=== PATIENT | male | born 1995 | race Two or more races ===

== ENCOUNTER 2019-08-02 10:45 | Emergency (ER) | payer SELFPAY ==
[~2019-08-02] VITALS: Ht 185.4 cm; Wt 113.4 kg
--- NOTE | 2019-08-02 10:50 | NUR ---
bib self 24 year old male c/o "albuterol puff not helping, still wheezing" x 2 weeks. alert and oriented x4, breathing even, states he feels sob, saturating well 97% to room air. skin intact and warm to touch. waiting to be seen by
[2019-08-02] MEDS ORDERED: ALBUTEROL FS 2.5 MG/3 ML VIAL.NEB ONE (10:55)
[2019-08-02] MEDS ORDERED: IPRATROPIUM NEB FS 0.5 MG/2.5 ML AMPUL.NEB ONE (10:55)
[2019-08-02] MEDS ORDERED: predniSONE 20 MG TABLET PO ONE (11:00)
[2019-08-02] MEDS ORDERED: IPRATROPIUM NEB FS 0.5 MG/2.5 ML AMPUL.NEB NEB ONE (11:00)
[2019-08-02] MEDS ORDERED: ALBUTEROL FS 2.5 MG/3 ML VIAL.NEB NEB ONE (11:00)
[2019-08-02] MEDS ORDERED: predniSONE 10 MG TABLET ONE (11:03)
[2019-08-02 11:44] VITALS: BP 133/80
--- NOTE | 2019-08-02 11:45 | NUR ---
Patient discharged to home in stable condition. Written and verbal after care instructions given. Patient verbalizes understanding of instruction.
== END 2019-08-02 12:35 | disposition home or self-care (01) ==
LOC: ER 10:50
DX: J45.909 Unspecified asthma, uncomplicated (principal)
CPT/HCPCS: 94644; 99285; J7512

== ENCOUNTER 2019-10-24 12:17 | Emergency (ER) | payer SELFPAY ==
[~2019-10-24] VITALS: Ht 185.4 cm; Wt 117.9 kg
[2019-10-24 12:38] VITALS: BP 133/95
== END 2019-10-24 13:02 | disposition home or self-care (01) ==
LOC: ER 12:19
DX: J45.909 Unspecified asthma, uncomplicated (principal)

== ENCOUNTER 2019-11-30 08:27 | Emergency (ER) | payer SELFPAY ==
[~2019-11-30] VITALS: Ht 182.9 cm; Wt 118.4 kg
[2019-11-30 08:36] VITALS: BP 142/84
== END 2019-11-30 08:54 | disposition home or self-care (01) ==
LOC: ER 08:31
DX: J45.909 Unspecified asthma, uncomplicated (principal)

== ENCOUNTER 2020-01-20 15:20 | Emergency (ER) | payer MEDICAID ==
[~2020-01-20] VITALS: Ht 182.9 cm; Wt 127.0 kg
[2020-01-20 15:28] VITALS: BP 132/85
--- NOTE | 2020-01-20 15:50 | NUR ---
Patient discharged to home in stable condition. Written and verbal after care instructions given. Patient verbalizes understanding of instruction.
== END 2020-01-20 15:50 | disposition home or self-care (01) ==
LOC: ER 15:26
DX: J45.909 Unspecified asthma, uncomplicated (principal)

== ENCOUNTER 2020-03-22 14:43 | Emergency (ER) | payer MEDICAID, OTHER ==
[~2020-03-22] VITALS: Ht 185.4 cm; Wt 117.9 kg
[2020-03-22] MEDS ORDERED: ALBU8.5H8 INH (14:56)
[2020-03-22 15:09] VITALS: BP 138/77
--- NOTE | 2020-03-22 15:09 | NUR ---
Patient discharged to home in stable condition. Written and verbal after care instructions given. Patient verbalizes understanding of instruction.
== END 2020-03-22 15:09 | disposition home or self-care (01) ==
LOC: ER 14:47
DX: J45.909 Unspecified asthma, uncomplicated (principal); Z76.0 Encounter for issue of repeat prescription; Z79.899 Other long term (current) drug therapy

== ENCOUNTER 2021-04-17 16:37 | Emergency (ER) | payer OTHER ==
[~2021-04-17] VITALS: Ht 185.4 cm; Wt 122.5 kg
[~2021-04-17 16:37] MED LIST: ALBU8.5H8 INH
[2021-04-17 16:53] VITALS: BP 130/90
--- NOTE | 2021-04-17 17:10 | NUR ---
Patient discharged to home in stable condition. Written and verbal after care instructions given. Patient verbalizes understanding of instruction.
== END 2021-04-17 17:11 | disposition home or self-care (01) ==
LOC: ER 16:48
DX: S61.214A Laceration without foreign body of right ring finger without damage to nail, initial encounter (principal); J45.909 Unspecified asthma, uncomplicated; Z79.899 Other long term (current) drug therapy; W23.0XXA Caught, crushed, jammed, or pinched between moving objects, initial encounter; Y93.89 Activity, other specified; Y92.89 Other specified places as the place of occurrence of the external cause; Y99.8 Other external cause status
CPT/HCPCS: 12001; 99282; A6403

== ENCOUNTER 2021-05-02 12:50 | Emergency (ER) | payer OTHER ==
[~2021-05-02] VITALS: Ht 185.4 cm; Wt 122.5 kg
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
[2021-05-02] MEDS ORDERED: VALPROATE 500 MG in IV D5W 100 ML IV SCH (13:30)
[2021-05-02] MEDS ORDERED: IBUP-1955 PO (15:04)
--- NOTE | 2021-05-02 15:20 | NUR ---
EMT AT BEDSIDE FOR SLING PLACEMENT AND INSTRUCTION
--- NOTE | 2021-05-02 15:29 | NUR ---
Patient discharged to home in stable condition. Written and verbal after care instructions given. Patient verbalizes understanding of instruction.
[2021-05-02 15:30] VITALS: BP 131/79
== END 2021-05-02 15:31 | disposition home or self-care (01) ==
LOC: ER 14:03
DX: M25.522 Pain in left elbow (principal); R07.81 Pleurodynia; J45.909 Unspecified asthma, uncomplicated; Z79.899 Other long term (current) drug therapy; W05.1XXA Fall from non-moving nonmotorized scooter, initial encounter; Y93.89 Activity, other specified; Y92.89 Other specified places as the place of occurrence of the external cause; Y99.8 Other external cause status
CPT/HCPCS: 71100-TC; 73080-TC; J3490; J7060

== ENCOUNTER 2022-01-31 16:29 | Emergency (ER) | payer OTHER ==
[~2022-01-31] VITALS: Ht 185.4 cm; Wt 124.7 kg
[~2022-01-31 16:29] MED LIST changes: +IBUP-1955 PO
[2022-01-31 16:59] VITALS: BP 125/72
[2022-01-31] MEDS ORDERED: OXYC5TAB3 PO (17:19)
--- NOTE | 2022-01-31 17:27 | NUR ---
Patient discharged to home in stable condition. Written and verbal after care instructions given. Patient verbalizes understanding of instruction.
== END 2022-01-31 17:29 | disposition home or self-care (01) ==
LOC: ER 16:36
DX: K08.89 Other specified disorders of teeth and supporting structures (principal); J45.909 Unspecified asthma, uncomplicated; Z79.899 Other long term (current) drug therapy

== ENCOUNTER 2024-08-09 13:54 | Emergency (ER) | payer OTHER ==
[~2024-08-09] VITALS: Ht 185.4 cm; Wt 117.9 kg
[~2024-08-09 13:54] MED LIST changes: +OXYC5TAB3 PO
[2024-08-09 15:22] LABS: BASOPHILS % (AUTO) 0.3 % (0.0-2.0); EOSINOPHILS # (AUTO) 0.1 K/uL (0.0-0.7); EOSINOPHILS % (AUTO) 1.4 % (0.0-6.0); HEMATOCRIT 44 % (39-51); HEMOGLOBIN 15.4 g/dL (13.5-17.5); LYMPHOCYTES # (AUTO) 1.3 K/uL (0.8-4.8); LYMPHOCYTES % (AUTO) 18.4 % (20.0-44.0); MEAN CORPUSCULAR HEMOGLOBIN 30 PG (26.0-33.0); MEAN CORPUSCULAR HGB CONC 35 g/dl (31.0-36.0); MEAN CORPUSCULAR VOLUME 86 fL (80-96); MONOCYTES # (AUTO) 0.6 K/uL (0.1-1.30); MONOCYTES % (AUTO) 8.6 % (2.0-12.0); NEUTROPHILS # (AUTO) 5.1 K/uL (1.8-8.9); NEUTROPHILS % (AUTO) 71.3 % (43.0-81.0); PLATELET COUNT (AUTO) 274 K/uL (150-450); RED BLOOD CELL COUNT(AUTO) 5.07 MIL/uL (4.5-6.0); RED CELL DISTRIBUTION WIDTH 13.9 % (11.5-15.0); WHITE BLOOD COUNT (AUTO) 7.2 K/uL (4.3-11.0)
[2024-08-09 15:27] LABS: CALCIUM, SERUM 8.9 mg/dL (8.5-10.1); CARBON DIOXIDE 26 mmol/L (21-32); CHLORIDE 105 mmol/L (98-107); CREATININE 0.9 mg/dL (0.6-1.3); GLUCOSE 94 mg/dL (74-106); SODIUM SERUM 145 mmol/L (136-145); UREA NITROGEN, BLOOD 9 mg/dL (7-18)
[2024-08-09 15:34] LABS: ALANINE AMINOTRANSFERASE 85 U/L (12-78); ALBUMIN 3.9 g/dL (3.4-5.0); ALKALINE PHOSPHATASE 75 U/L (46-116); ASPARTATE AMINOTRANSFERASE 141 U/L (15-37); BILIRUBIN,DIRECT 0.2 mg/dL (0.0-0.2); BILIRUBIN,TOTAL 0.6 mg/dL (0.2-1.0)
[2024-08-09] MEDS ORDERED: ALBUTEROL FS 2.5 MG/3 ML VIAL.NEB ONE (16:03)
[2024-08-09] MEDS ORDERED: IPRATROPIUM NEB FS 0.5 MG/2.5 ML AMPUL.NEB ONE (16:03)
[2024-08-09 16:16] VITALS: O2SAT 96
[2024-08-09] MEDS: IPRATROPIUM NEB FS 0.5 MG/2.5 ML AMPUL.NEB NEB ONE (16:16)
[2024-08-09] MEDS: ALBUTEROL FS 2.5 MG/3 ML VIAL.NEB NEB ONE (16:16)
[2024-08-09] MEDS ORDERED: predniSONE 20 MG TABLET ONE (16:34)
[2024-08-09] MEDS: predniSONE 50 MG TABLET PO ONE (16:36)
[2024-08-09 17:16] VITALS: O2SAT 98
[2024-08-09] MEDS ORDERED: ALBU2.5V38 NEB (17:57)
[2024-08-09] MEDS ORDERED: PRED50TA PO (17:57)
[2024-08-09 18:14] VITALS: BP 133/70; TEMP 98.4; O2SAT 98
== END 2024-08-09 18:14 | disposition home or self-care (01) ==
LOC: ER 14:23
DX: R05.9 Cough, unspecified (principal); R06.02 Shortness of breath; R06.2 Wheezing; Z79.52 Long term (current) use of systemic steroids
CPT/HCPCS: 99285; 71045; 93005; 87804 ×2; 85025; 80048; 80076; 36415; 84484 ×2; 94799; 94644; J7512